=== PATIENT | female | born 1990 | race African-American/Black ===

== ENCOUNTER 2024-04-13 00:13 | Emergency (ER) | payer OTHER ==
[2024-04-13 00:19] VITALS: BP 105/71; PULSE 80; RESP 18; TEMP 98.4; BMI 19.1
[2024-04-13] MEDS ORDERED: ACETAMINOPHEN INJECTION 100 ML IVPB ONE (00:56)
[2024-04-13] MEDS: ACETAMINOPHEN 1000 MG/100 ML BAG IVPB ONE (01:16)
[2024-04-13 01:20] LABS: PH,URINE 6.5 (5.0-8.0); URINE APPEARANCE CLEAR; URINE BILIRUBIN NEGATIVE (NEGATIVE); URINE COLOR YELLOW; URINE GLUCOSE (UA) NEGATIVE (NEGATIVE); URINE KETONE NEGATIVE (NEGATIVE); URINE LEUK ESTERASE NEGATIVE (NEGATIVE); URINE NITRITE NEGATIVE (NEGATIVE); URINE PROTEIN NEGATIVE (NEGATIVE); URINE UROBILINOGEN 0.2 mg/dL (0.2-1.0)
[2024-04-13 01:37] LABS: POTASSIUM 3.9 mmol/L (3.5-5.1)
[2024-04-13 01:38] LABS: CALCIUM 9.1 mg/dL (8.5-10.1)
[2024-04-13 01:39] LABS: ALBUMIN 4.3 g/dl (3.4-5.0); BLOOD UREA NITROGEN 8.9 mg/dL (7-18)
[2024-04-13 01:42] LABS: BASO % 0.8 % (0-2.0); CREATININE 0.6 mg/dL (0.55-1.3); EOS % 1.7 % (0-4.5); HEMATOCRIT 39.7 % (32.4-45.2); HEMOGLOBIN 13.3 GM/dL (10.7-15.3); INR 0.98 (0.83-1.09); LYMPH % 40.6 % (8-40); MCH 29.1 pg (25.7-33.7); MCHC 33.4 g/dl (32.0-36.0); MEAN CELL VOLUME 87.3 fl (80-96); MEAN PLT VOLUME 7.3 fl (7.5-11.1); MONO % 8.3 % (3.8-10.2); NEUT % 48.6 % (42.8-82.8); PLATELET COUNT 354 10^3/uL (134-434); PROTHROMBIN TIME (PATIENT) 11.3 SEC (9.7-13.0); RBC 4.55 M/mm3 (3.60-5.2); WHITE BLOOD COUNT 8.2 K/mm3 (4.0-10.0)
[2024-04-13 01:44] LABS: BILIRUBIN,TOTAL 0.5 mg/dL (0.2-1)
[2024-04-13 01:45] LABS: ACTIVATED PTT 27.5 SECONDS (25.2-36.5)
== END 2024-04-13 03:09 | disposition home or self-care (01) ==
LOC: JER 00:13
PROC: 3E033NZ Introduction of Analgesics, Hypnotics, Sedatives into Peripheral Vein, Percutaneous Approach (ICD-10-PCS; principal; 2024-04-13)
DX: O26.891 Other specified pregnancy related conditions, first trimester (principal); R10.30 Lower abdominal pain, unspecified; Z3A.01 Less than 8 weeks gestation of pregnancy
CPT/HCPCS: 36415; 76817-TC; 80053; 81003; 84702; 84703; 85025; 85610; 85730; 86850; 86900; 86901; 87086; 99284-25; J0131